=== PATIENT | male | born 1980 | race Caucasian/White ===

== ENCOUNTER 2017-07-15 06:52 | Outpatient (CLI) | payer OTHER ==
[2017-07-15 07:41] LABS: eGFR (African) > 60; eGFR (Non-African) > 60
== END 2017-07-15 06:53 ==
LOC: LAB 06:52
PROVIDERS: ATTEND Physician Assistant
DX: Z13.6 Encounter for screening for cardiovascular disorders (principal)
CPT/HCPCS: 36415; 80053; 80061